=== PATIENT | female | born 1945 | race African-American/Black ===

== ENCOUNTER 2017-07-27 15:42 | Inpatient (IN) ==
[2017-07-27] MEDS ORDERED: BISACODYL 5 MG TABLET PO PRN (18:21)
[2017-07-27] MEDS ORDERED: ACETAMINOPHEN 325 MG TABLET PO PRN (18:21)
[2017-07-27] MEDS ORDERED: traMADol 50 MG TABLET PO PRN (18:21)
[2017-07-27] MEDS ORDERED: SODIUM CHLORIDE 0.9% 1,000 ML IV PRN (18:25)
[2017-07-27] MEDS ORDERED: SODIUM CHLORIDE 0.45% 1,000 ML IV SCH (18:30)
[2017-07-27 19:07] LABS: Basophils # 0.1 10*3/uL (0.0-0.2); Basophils % 0.6 % (0.0-0.8); Eosinophils # 0.1 10*3/uL (0.0-0.87); Eosinophils % 1.2 % (0.00-10.9); Hematocrit 23.2 VOL% (35.7-47.0); Hemoglobin 7.3 GM/DL (12.0-16.0); Immature Granulocytes % 0.8 %; Immature Granulocytes Absolute 0.07 #; Lymphocytes % 11.1 % (21.3-54.2); Mean Corpuscular HGB Conc 31.5 GM/DL (32-36); Mean Corpuscular Hemoglobin 31 PG (27-34); Mean Corpuscular Volume 97.5 FL (87-102); Mean Platelet Volume 9.3 FL (9.6-12.0); Monocytes # 0.3 10*3/uL (0.11-0.8); Monocytes % 3.3 % (1.7-12.7); Neutrophils # 7.4 10*3/uL (1.4-7.4); Platelet Count 269 T/CUMM (130-400); Red Blood Count 2.38 MC/CUMM (3.8-5.5); Red Cell Distribution Width 15.3 % (9.3-17.3); White Blood Count 8.9 T/CUMM (4-12)
[2017-07-27 19:54] LABS: Alanine Aminotransferase 13 U/L (13-56); Albumin 3.5 G/DL (3.4-5.0); Alkaline Phosphatase 98 U/L (45-117); Aspartate Amino Transferase 13 U/L (0-37); B-Type Natriuretic Peptide 145 PG/ML (2-100); Bilirubin,Total < 0.39 MG/DL (0.2-1.0); Blood Urea Nitrogen 64 MG/DL (7-18); Calcium 8.7 MG/DL (8.5-10.1); Glucose 103 MG/DL (74-106); Osmolality,Calculated 294.5 MOS/KG (273-304); Potassium 5.2 MMOL/L (3.5-5.1); Sodium 139 MMOL/L (136-145)
[2017-07-27 20:24] LABS: Hepatitis A Ab IgM Quant 2.11 Index; Hepatitis A Ab IgM Result Positive (Negative); Hepatitis B Core IgM Quant 0.16 Index; Hepatitis B Core IgM Result Negative (Negative); Hepatitis B Surface Ag Quant < 0.10 Index; Hepatitis B Surface Ag Result Negative (Negative); Hepatitis C Virus Ab Quant 0.08 Index; Hepatitis C Virus Ab Result Negative (Negative)
[2017-07-27] MEDS: AMITRIPTYLINE 50 MG TABLET PO SCH (21:53)
[2017-07-27] MEDS: ALPRAZolam 0.25 MG TABLET PO SCH (21:53)
[2017-07-27] MEDS: DOCUSATE SODIUM 100 MG CAPSULE PO SCH (21:54)
[2017-07-27] MEDS: ENOXAPARIN 30 MG/0.3 ML SYRINGE SUBCUT SCH (21:55)
[2017-07-28] MEDS: amLODIPine 10 MG TABLET PO SCH (09:11)
[2017-07-28] MEDS: CALCIUM ACETATE 667 MG CAPSULE PO SCH ×3 (09:12→16:20)
[2017-07-28] MEDS: MULTIVITAMIN (BEROCCA) TABLET PO SCH (09:12)
[2017-07-28] MEDS: DOCUSATE SODIUM 100 MG CAPSULE PO SCH ×2 (09:12→20:43)
[2017-07-28] MEDS: PANTOPRAZOLE 40 MG TABLET PO SCH (09:12)
[2017-07-28] MEDS: ALPRAZolam 0.25 MG TABLET PO SCH ×2 (09:12→20:43)
[2017-07-28 13:42] LABS: Basophils % 0.4 % (0.0-0.8); Eosinophils # 0.1 10*3/uL (0.0-0.87); Eosinophils % 1.3 % (0.00-10.9); Hematocrit 24.4 VOL% (35.7-47.0); Hemoglobin 7.7 GM/DL (12.0-16.0); Immature Granulocytes % 1.1 %; Immature Granulocytes Absolute 0.08 #; Lymphocytes # 1.1 10*3/uL (1.4-4.0); Lymphocytes % 13.9 % (21.3-54.2); Mean Corpuscular HGB Conc 31.6 GM/DL (32-36); Mean Corpuscular Hemoglobin 31 PG (27-34); Mean Corpuscular Volume 97.6 FL (87-102); Monocytes # 0.3 10*3/uL (0.11-0.8); Monocytes % 3.9 % (1.7-12.7); Neutrophils % 79.4 % (38.7-73.9); Platelet Count 239 T/CUMM (130-400); Red Cell Distribution Width 14.7 % (9.3-17.3); White Blood Count 7.5 T/CUMM (4-12)
[2017-07-28 14:07] LABS: Albumin 3.1 G/DL (3.4-5.0); Calcium 8.7 MG/DL (8.5-10.1); Osmolality,Calculated 303.1 MOS/KG (273-304); Potassium 5.3 MMOL/L (3.5-5.1)
[2017-07-28] MEDS: AMITRIPTYLINE 50 MG TABLET PO SCH (20:43)
[2017-07-28] MEDS: ENOXAPARIN 30 MG/0.3 ML SYRINGE SUBCUT SCH (20:43)
[2017-07-29 00:18] LABS: Apearance,Urine CLEAR (Clear); Bilirubin,Urine Negative (Negative); Blood, Urine Negative (Negative); Glucose,Urine (UA) 50 mg/dL (Negative); Ketones,Urine Negative (Negative); Mucus,Urine Occasional /LPF (Occasional); Nitrite,Urine Negative (Negative); Protein,Urine 100 MG/DL; Squamous Epithelial Cell,Urine Occasional /HPF (0-10); Urine Color Straw (Yellow); Urine Specific Gravity 1.006 (1.001-1.035); Urine Urobilinogen < 2.0 EU/DL (0.2-1.0); WBC,Urine 2 /HPF (0-6)
[2017-07-29 05:17] LABS: Basophils % 0.5 % (0.0-0.8); Eosinophils # 0.2 10*3/uL (0.0-0.87); Eosinophils % 2.2 % (0.00-10.9); Hematocrit 25.7 VOL% (35.7-47.0); Hemoglobin 8.3 GM/DL (12.0-16.0); Immature Granulocytes % 0.7 %; Immature Granulocytes Absolute 0.06 #; Lymphocytes # 1.4 10*3/uL (1.4-4.0); Lymphocytes % 16.5 % (21.3-54.2); Mean Corpuscular HGB Conc 32.3 GM/DL (32-36); Mean Corpuscular Hemoglobin 30 PG (27-34); Mean Corpuscular Volume 92.8 FL (87-102); Mean Platelet Volume 8.8 FL (9.6-12.0); Monocytes # 0.4 10*3/uL (0.11-0.8); Monocytes % 5.1 % (1.7-12.7); Neutrophils # 6.2 10*3/uL (1.4-7.4); Platelet Count 208 T/CUMM (130-400); Red Blood Count 2.77 MC/CUMM (3.8-5.5); Red Cell Distribution Width 16.2 % (9.3-17.3); White Blood Count 8.3 T/CUMM (4-12)
[2017-07-29 05:40] LABS: Albumin 2.9 G/DL (3.4-5.0); Calcium 8.8 MG/DL (8.5-10.1); Osmolality,Calculated 301.1 MOS/KG (273-304); Potassium 5.1 MMOL/L (3.5-5.1)
[2017-07-29 05:41] LABS: Calcium 8.8 MG/DL (8.5-10.1); Osmolality,Calculated 299.1 MOS/KG (273-304); Potassium 5.1 MMOL/L (3.5-5.1)
[2017-07-29] MEDS ORDERED: HEPARIN 5,000 UNIT/1 ML VIAL ONE (09:34)
[2017-07-29] MEDS ORDERED: BUPIVACAINE 0.25% 50 ML VIAL ONE (09:35)
[2017-07-29] MEDS ORDERED: SODIUM CHLORIDE 0.9% 500 ML IV ONE (10:44)
[2017-07-29] MEDS ORDERED: ceFAZolin 1,000 MG VIAL ONE (10:44)
[2017-07-29] MEDS ORDERED: PROPOFOL 200 MG/20 ML VIAL IV ONE (10:44)
[2017-07-29] MEDS: CALCIUM ACETATE 667 MG CAPSULE PO SCH ×3 (11:13→16:23)
[2017-07-29] MEDS: DOCUSATE SODIUM 100 MG CAPSULE PO SCH ×2 (12:07→21:05)
[2017-07-29] MEDS: MULTIVITAMIN (BEROCCA) TABLET PO SCH (12:07)
[2017-07-29] MEDS: amLODIPine 10 MG TABLET PO SCH (12:08)
[2017-07-29] MEDS: PANTOPRAZOLE 40 MG TABLET PO SCH (12:08)
[2017-07-29] MEDS: ALPRAZolam 0.25 MG TABLET PO SCH ×2 (12:08→21:04)
[2017-07-29] MEDS: ENOXAPARIN 30 MG/0.3 ML SYRINGE SUBCUT SCH (21:04)
[2017-07-29] MEDS: AMITRIPTYLINE 50 MG TABLET PO SCH (21:04)
[2017-07-30 04:34] LABS: Albumin 2.9 G/DL (3.4-5.0); Calcium 8.6 MG/DL (8.5-10.1); Osmolality,Calculated 292.3 MOS/KG (273-304)
[2017-07-30] MEDS: ALPRAZolam 0.25 MG TABLET PO SCH ×2 (09:29→20:29)
[2017-07-30] MEDS: CALCIUM ACETATE 667 MG CAPSULE PO SCH ×3 (09:29→16:43)
[2017-07-30] MEDS: PANTOPRAZOLE 40 MG TABLET PO SCH (09:30)
[2017-07-30] MEDS: MULTIVITAMIN (BEROCCA) TABLET PO SCH (09:30)
[2017-07-30] MEDS: amLODIPine 10 MG TABLET PO SCH (09:30)
[2017-07-30] MEDS: DOCUSATE SODIUM 100 MG CAPSULE PO SCH ×2 (09:30→20:29)
[2017-07-30] MEDS: ENOXAPARIN 30 MG/0.3 ML SYRINGE SUBCUT SCH (20:29)
[2017-07-30] MEDS: AMITRIPTYLINE 50 MG TABLET PO SCH (20:29)
[2017-07-31] MEDS: ALPRAZolam 0.25 MG TABLET PO SCH ×2 (08:19→21:01)
[2017-07-31] MEDS: CALCIUM ACETATE 667 MG CAPSULE PO SCH ×3 (08:19→17:16)
[2017-07-31] MEDS: MULTIVITAMIN (BEROCCA) TABLET PO SCH (08:20)
[2017-07-31] MEDS: PANTOPRAZOLE 40 MG TABLET PO SCH (08:20)
[2017-07-31] MEDS: DOCUSATE SODIUM 100 MG CAPSULE PO SCH ×2 (08:20→21:02)
[2017-07-31] MEDS: amLODIPine 10 MG TABLET PO SCH (08:20)
[2017-07-31] MEDS ORDERED: EPOETIN ALFA 2,000 UNIT/1 ML VIAL IV PRN (10:41)
[2017-07-31] MEDS ORDERED: HEPARIN 10,000 UNIT/10 ML VIAL IV PRN (13:03)
[2017-07-31] MEDS: AMITRIPTYLINE 50 MG TABLET PO SCH (21:01)
[2017-07-31] MEDS: ENOXAPARIN 30 MG/0.3 ML SYRINGE SUBCUT SCH (21:02)
[2017-08-01 07:53] VITALS: BP 123/63
[2017-08-01] MEDS: DOCUSATE SODIUM 100 MG CAPSULE PO SCH (08:01)
[2017-08-01] MEDS: CALCIUM ACETATE 667 MG CAPSULE PO SCH ×2 (08:01→13:05)
[2017-08-01] MEDS: MULTIVITAMIN (BEROCCA) TABLET PO SCH (08:01)
[2017-08-01] MEDS: ALPRAZolam 0.25 MG TABLET PO SCH (08:02)
[2017-08-01] MEDS: PANTOPRAZOLE 40 MG TABLET PO SCH (08:02)
[2017-08-01] MEDS: amLODIPine 10 MG TABLET PO SCH (13:05)
== END 2017-08-01 13:41 | disposition home or self-care (01) | DRG 673 ==
LOC: N.2E 15:56
PROVIDERS: ADMIT Internal Medicine Nephrology; ATTEND Internal Medicine Nephrology